=== PATIENT | male | born 2005 | race Caucasian/White ===

== ENCOUNTER 2025-08-23 14:10 | Inpatient (IN) | payer SELFPAY ==
[2025-08-23] MEDS ORDERED: Sodium Chloride 0.9% 10 ML Syringe FLUSH PRN (15:08)
[2025-08-23] MEDS: Ondansetron 4 MG/2 ML SDV IVPUSH ONE (15:33)
[2025-08-23 15:39] LABS: BASOPHILS ABSOLUTE AUTO 0.1 K/mm3 (0.0-0.2); BASOPHILS PERCENT AUTO 0.6 % (0.0-1.0); EOSINOPHILS ABSOLUTE AUTO 0.0 K/mm3 (0.0-0.4); EOSINOPHILS PERCENT AUTO 0.1 % (0.0-6.0); IMMATURE GRAN ABSOLUTE AUTO 0.23 K/mm3 (0.00-0.05); IMMATURE GRAN PERCENT AUTO 1.4 % (0.0-0.4); LYMPHOCYTES ABSOLUTE AUTO 1.6 K/mm3 (1.0-4.8); LYMPHOCYTES PERCENT AUTO 9.7 % (24.0-44.0); MEAN PLATELET VOLUME 10.4 fl (9.4-12.4); MONOCYTES ABSOLUTE AUTO 1.4 K/mm3 (0.0-0.8); MONOCYTES PERCENT AUTO 8.5 % (0.0-8.0); NEUTROPHILS ABSOLUTE AUTO 13.3 K/mm3 (1.8-7.7); NEUTROPHILS PERCENT AUTO 79.7 % (41.0-71.0); NRBC ABSOLUTE 0.00 (0.00-0.02); NRBC PERCENT 0.0 % (0.0-0.2); PLATELET COUNT,PLT 323 K/mm3 (150-400); RED BLOOD CELL COUNT 5.92 M/mm3 (4.52-5.90); WHITE BLOOD CELL COUNT,WBC 16.65 K/mm3 (3.9-11.3)
[2025-08-23 15:40] LABS: O2 SATURATION ARTERIAL 99.3 % (96.0-97.0); PCO2 ARTERIAL 6.0 mmHg (35.0-45.0); PO2 ARTERIAL 122.0 mmHg (80.0-100.0)
[2025-08-23 15:41] LABS: BASE EXCESS ARTERIAL -25.1 (-2-2.0); BICARBONATE,ARTERIAL 1.8 meq/L (22.0-26.0)
[2025-08-23 16:07] LABS: LACTIC ACID 1.8 mmol/L (0.4-2.0)
[2025-08-23 16:10] LABS: A/G RATIO 1.0 (1-2); ALANINE AMINOTRANSFERASE,ALT 30.0 U/L (16-63); ASPARTATE AMNIOTRANSFERASE,AST 7.0 U/L (15-37); BILIRUBIN TOTAL 0.5 mg/dL (0.2-1.0); BLOOD UREA NITROGEN,BUN 11.0 mg/dL (7-18); CHLORIDE,CL 99.0 mEq/L (98-107); CREATININE 1.1 mg/dL (0.7-1.3); EST CRCL DRUG DOSING (CG) 129.32 mL/min; ESTIMATED GFR 97.0 mL/min (>60); POTASSIUM,K 5.1 mEq/L (3.5-5.1); PROTEIN TOTAL,TP 8.7 g/dl (6.4-8.2); SODIUM,NA 135.0 mEq/L (136-145)
[2025-08-23 16:15] LABS: CARBON DIOXIDE,CO2 7.0 mEq/L (21-32)
[2025-08-23 16:16] LABS: GLUCOSE RANDOM 508.0 mg/dL (70-99)
[2025-08-23] MEDS ORDERED: 50% Dextrose in Water 50 ML Syringe IVPUSH PRN (18:44)
[2025-08-23 20:12] LABS: BLOOD UREA NITROGEN,BUN 11.0 mg/dL (7-18); CHLORIDE,CL 106.0 mEq/L (98-107); CREATININE 1.0 mg/dL (0.7-1.3); EST CRCL DRUG DOSING (CG) 142.26 mL/min; ESTIMATED GFR 109.0 mL/min (>60); GLUCOSE RANDOM 360.0 mg/dL (70-99); PHOSPHORUS 3.2 mg/dL (2.6-4.7); POTASSIUM,K 4.5 mEq/L (3.5-5.1); SODIUM,NA 138.0 mEq/L (136-145)
[2025-08-23 20:25] LABS: CARBON DIOXIDE,CO2 7.0 mEq/L (21-32)
[2025-08-23 23:54] LABS: APPEARANCE,URINE CLEAR (Clear); GLUCOSE,URINE 2+ (Negative); OCCULT BLOOD,URINE 2+ (Negative)
[2025-08-24 00:28] LABS: BLOOD UREA NITROGEN,BUN 9.0 mg/dL (7-18); CHLORIDE,CL 109.0 mEq/L (98-107); CREATININE 0.8 mg/dL (0.7-1.3); EST CRCL DRUG DOSING (CG) 177.82 mL/min; ESTIMATED GFR 128.0 mL/min (>60); GLUCOSE RANDOM 221.0 mg/dL (70-99); PHOSPHORUS 2.5 mg/dL (2.6-4.7); POTASSIUM,K 3.9 mEq/L (3.5-5.1); SODIUM,NA 141.0 mEq/L (136-145)
[2025-08-24 00:31] LABS: CARBON DIOXIDE,CO2 6.0 mEq/L (21-32)
[2025-08-24 04:32] LABS: BLOOD UREA NITROGEN,BUN 8.0 mg/dL (7-18); CHLORIDE,CL 107.0 mEq/L (98-107); CREATININE 1.0 mg/dL (0.7-1.3); EST CRCL DRUG DOSING (CG) 142.26 mL/min; ESTIMATED GFR 109.0 mL/min (>60); GLUCOSE RANDOM 266.0 mg/dL (70-99); PHOSPHORUS 1.6 mg/dL (2.6-4.7); POTASSIUM,K 3.9 mEq/L (3.5-5.1); SODIUM,NA 134.0 mEq/L (136-145)
[2025-08-24 05:04] LABS: CARBON DIOXIDE,CO2 9.0 mEq/L (21-32)
[2025-08-24 05:49] LABS: BASOPHILS ABSOLUTE AUTO 0.1 K/mm3 (0.0-0.2); BASOPHILS PERCENT AUTO 0.4 % (0.0-1.0); EOSINOPHILS ABSOLUTE AUTO 1.2 K/mm3 (0.0-0.4); EOSINOPHILS PERCENT AUTO 10.9 % (0.0-6.0); IMMATURE GRAN ABSOLUTE AUTO 0.18 K/mm3 (0.00-0.05); IMMATURE GRAN PERCENT AUTO 1.6 % (0.0-0.4); LYMPHOCYTES ABSOLUTE AUTO 1.8 K/mm3 (1.0-4.8); LYMPHOCYTES PERCENT AUTO 15.6 % (24.0-44.0); MEAN PLATELET VOLUME 9.9 fl (9.4-12.4); MONOCYTES ABSOLUTE AUTO 1.4 K/mm3 (0.0-0.8); MONOCYTES PERCENT AUTO 12.5 % (0.0-8.0); NEUTROPHILS ABSOLUTE AUTO 6.6 K/mm3 (1.8-7.7); NEUTROPHILS PERCENT AUTO 59.0 % (41.0-71.0); NRBC ABSOLUTE 0.00 (0.00-0.02); NRBC PERCENT 0.0 % (0.0-0.2); PLATELET COUNT,PLT 193 K/mm3 (150-400); RED BLOOD CELL COUNT 5.02 M/mm3 (4.52-5.90); WHITE BLOOD CELL COUNT,WBC 11.23 K/mm3 (3.9-11.3)
[2025-08-24 06:31] LABS: A/G RATIO 1.0 (1-2); ALANINE AMINOTRANSFERASE,ALT 24.0 U/L (16-63); ASPARTATE AMNIOTRANSFERASE,AST 8.0 U/L (15-37); BILIRUBIN TOTAL 0.6 mg/dL (0.2-1.0); BLOOD UREA NITROGEN,BUN 9.0 mg/dL (7-18); CHLORIDE,CL 108.0 mEq/L (98-107); CREATININE 0.9 mg/dL (0.7-1.3); EST CRCL DRUG DOSING (CG) 158.06 mL/min; ESTIMATED GFR 124.0 mL/min (>60); GLUCOSE RANDOM 248.0 mg/dL (70-99); POTASSIUM,K 3.4 mEq/L (3.5-5.1); PROTEIN TOTAL,TP 6.7 g/dl (6.4-8.2); SODIUM,NA 138.0 mEq/L (136-145)
[2025-08-24 06:35] LABS: CARBON DIOXIDE,CO2 8.0 mEq/L (21-32)
[2025-08-24 08:05] LABS: BLOOD UREA NITROGEN,BUN 8.0 mg/dL (7-18); CHLORIDE,CL 109.0 mEq/L (98-107); CREATININE 0.8 mg/dL (0.7-1.3); EST CRCL DRUG DOSING (CG) 177.82 mL/min; ESTIMATED GFR 128.0 mL/min (>60); GLUCOSE RANDOM 265.0 mg/dL (70-99); PHOSPHORUS 1.4 mg/dL (2.6-4.7); POTASSIUM,K 3.3 mEq/L (3.5-5.1); SODIUM,NA 138.0 mEq/L (136-145)
[2025-08-24 08:07] LABS: CARBON DIOXIDE,CO2 8.0 mEq/L (21-32)
[2025-08-24 08:43] LABS: EPITHELIAL CELLS,URINE 0-5 /hpf (0-5)
[2025-08-24] MEDS: Ondansetron 4 MG/2 ML SDV IVPUSH PRN (09:45)
[2025-08-24 12:11] LABS: BLOOD UREA NITROGEN,BUN 7.0 mg/dL (7-18); CARBON DIOXIDE,CO2 10.0 mEq/L (21-32); CHLORIDE,CL 109.0 mEq/L (98-107); CREATININE 0.7 mg/dL (0.7-1.3); EST CRCL DRUG DOSING (CG) 203.22 mL/min; ESTIMATED GFR 134.0 mL/min (>60); GLUCOSE RANDOM 255.0 mg/dL (70-99); PHOSPHORUS 1.2 mg/dL (2.6-4.7); POTASSIUM,K 3.3 mEq/L (3.5-5.1); SODIUM,NA 138.0 mEq/L (136-145)
[2025-08-24] MEDS: Potassium Phosphates 30 MMOLE in Sodium Chloride 0.9% 500 ML IV ONE (13:16)
[2025-08-24 14:42] LABS: BLOOD UREA NITROGEN,BUN 7.0 mg/dL (7-18); CARBON DIOXIDE,CO2 12.0 mEq/L (21-32); CHLORIDE,CL 109.0 mEq/L (98-107); CREATININE 0.6 mg/dL (0.7-1.3); EST CRCL DRUG DOSING (CG) 237.09 mL/min; ESTIMATED GFR 140.0 mL/min (>60); GLUCOSE RANDOM 263.0 mg/dL (70-99); POTASSIUM,K 3.2 mEq/L (3.5-5.1); SODIUM,NA 138.0 mEq/L (136-145)
[2025-08-24 15:52] LABS: BLOOD UREA NITROGEN,BUN 7.0 mg/dL (7-18); CARBON DIOXIDE,CO2 13.0 mEq/L (21-32); CHLORIDE,CL 109.0 mEq/L (98-107); CREATININE 0.7 mg/dL (0.7-1.3); EST CRCL DRUG DOSING (CG) 203.22 mL/min; ESTIMATED GFR 134.0 mL/min (>60); GLUCOSE RANDOM 250.0 mg/dL (70-99); POTASSIUM,K 3.4 mEq/L (3.5-5.1); SODIUM,NA 139.0 mEq/L (136-145)
[2025-08-24 17:56] LABS: BLOOD UREA NITROGEN,BUN 6.0 mg/dL (7-18); CARBON DIOXIDE,CO2 11.0 mEq/L (21-32); CHLORIDE,CL 108.0 mEq/L (98-107); CREATININE 0.6 mg/dL (0.7-1.3); EST CRCL DRUG DOSING (CG) 237.09 mL/min; ESTIMATED GFR 140.0 mL/min (>60); GLUCOSE RANDOM 229.0 mg/dL (70-99); POTASSIUM,K 3.0 mEq/L (3.5-5.1); SODIUM,NA 137.0 mEq/L (136-145)
[2025-08-24] MEDS: Potassium Chloride 20 MEQ Tab.ER PO ONE ×2 (18:53→19:54)
[2025-08-24 18:57] LABS: PHOSPHORUS 1.6 mg/dL (2.6-4.7)
[2025-08-24 21:54] LABS: BLOOD UREA NITROGEN,BUN 6.0 mg/dL (7-18); CARBON DIOXIDE,CO2 11.0 mEq/L (21-32); CHLORIDE,CL 106.0 mEq/L (98-107); CREATININE 0.6 mg/dL (0.7-1.3); EST CRCL DRUG DOSING (CG) 237.09 mL/min; ESTIMATED GFR 140.0 mL/min (>60); GLUCOSE RANDOM 289.0 mg/dL (70-99); PHOSPHORUS 1.0 mg/dL (2.6-4.7); POTASSIUM,K 3.2 mEq/L (3.5-5.1); SODIUM,NA 137.0 mEq/L (136-145)
[2025-08-24] MEDS: Sodium Chloride 0.45% with KCl 1,000 ML IV SCH (23:32)
[2025-08-24 23:51] LABS: BLOOD UREA NITROGEN,BUN 6.0 mg/dL (7-18); CARBON DIOXIDE,CO2 11.0 mEq/L (21-32); CHLORIDE,CL 106.0 mEq/L (98-107); CREATININE 0.7 mg/dL (0.7-1.3); EST CRCL DRUG DOSING (CG) 203.22 mL/min; ESTIMATED GFR 134.0 mL/min (>60); GLUCOSE RANDOM 270.0 mg/dL (70-99); POTASSIUM,K 3.6 mEq/L (3.5-5.1); SODIUM,NA 136.0 mEq/L (136-145)
[2025-08-24] MEDS: Potassium Phosphates 30 MMOLE in Sodium Chloride 0.9% 500 ML IV SCH (23:56)
[2025-08-25] MEDS: D5 1/2 NS w/ 20 mEq/L KCl 1,000 ML IV SCH (01:10)
[2025-08-25 02:09] LABS: BLOOD UREA NITROGEN,BUN 6.0 mg/dL (7-18); CARBON DIOXIDE,CO2 10.0 mEq/L (21-32); CHLORIDE,CL 107.0 mEq/L (98-107); CREATININE 0.6 mg/dL (0.7-1.3); EST CRCL DRUG DOSING (CG) 237.09 mL/min; ESTIMATED GFR 140.0 mL/min (>60); GLUCOSE RANDOM 254.0 mg/dL (70-99); PHOSPHORUS 1.5 mg/dL (2.6-4.7); POTASSIUM,K 3.2 mEq/L (3.5-5.1); SODIUM,NA 138.0 mEq/L (136-145)
[2025-08-25 06:12] LABS: BASOPHILS ABSOLUTE AUTO 0.0 K/mm3 (0.0-0.2); BASOPHILS PERCENT AUTO 0.5 % (0.0-1.0); EOSINOPHILS ABSOLUTE AUTO 0.0 K/mm3 (0.0-0.4); EOSINOPHILS PERCENT AUTO 0.7 % (0.0-6.0); IMMATURE GRAN ABSOLUTE AUTO 0.04 K/mm3 (0.00-0.05); IMMATURE GRAN PERCENT AUTO 0.7 % (0.0-0.4); LYMPHOCYTES ABSOLUTE AUTO 2.1 K/mm3 (1.0-4.8); LYMPHOCYTES PERCENT AUTO 35.3 % (24.0-44.0); MEAN PLATELET VOLUME 10.1 fl (9.4-12.4); MONOCYTES ABSOLUTE AUTO 0.6 K/mm3 (0.0-0.8); MONOCYTES PERCENT AUTO 10.0 % (0.0-8.0); NEUTROPHILS ABSOLUTE AUTO 3.2 K/mm3 (1.8-7.7); NEUTROPHILS PERCENT AUTO 52.8 % (41.0-71.0); NRBC ABSOLUTE 0.00 (0.00-0.02); NRBC PERCENT 0.0 % (0.0-0.2); PLATELET COUNT,PLT 159 K/mm3 (150-400); RED BLOOD CELL COUNT 4.46 M/mm3 (4.52-5.90); WHITE BLOOD CELL COUNT,WBC 6.01 K/mm3 (3.9-11.3)
[2025-08-25 06:13] LABS: A/G RATIO 1.0 (1-2); ALANINE AMINOTRANSFERASE,ALT 21.0 U/L (16-63); ASPARTATE AMNIOTRANSFERASE,AST 9.0 U/L (15-37); BILIRUBIN TOTAL 0.8 mg/dL (0.2-1.0); BLOOD UREA NITROGEN,BUN 6.0 mg/dL (7-18); CARBON DIOXIDE,CO2 11.0 mEq/L (21-32); CHLORIDE,CL 107.0 mEq/L (98-107); CREATININE 0.7 mg/dL (0.7-1.3); EST CRCL DRUG DOSING (CG) 203.22 mL/min; ESTIMATED GFR 134.0 mL/min (>60); GLUCOSE RANDOM 225.0 mg/dL (70-99); PHOSPHORUS 2.0 mg/dL (2.6-4.7); POTASSIUM,K 3.3 mEq/L (3.5-5.1); PROTEIN TOTAL,TP 5.9 g/dl (6.4-8.2); SODIUM,NA 139.0 mEq/L (136-145)
[2025-08-25 10:06] LABS: BLOOD UREA NITROGEN,BUN 5.0 mg/dL (7-18); CARBON DIOXIDE,CO2 15.0 mEq/L (21-32); CHLORIDE,CL 107.0 mEq/L (98-107); CREATININE 0.7 mg/dL (0.7-1.3); EST CRCL DRUG DOSING (CG) 203.22 mL/min; ESTIMATED GFR 134.0 mL/min (>60); GLUCOSE RANDOM 221.0 mg/dL (70-99); PHOSPHORUS 2.2 mg/dL (2.6-4.7); POTASSIUM,K 3.1 mEq/L (3.5-5.1); SODIUM,NA 138.0 mEq/L (136-145)
[2025-08-25] MEDS: Potassium Chloride 20 MEQ Tab.ER PO ONE (10:33)
[2025-08-25 13:57] LABS: BLOOD UREA NITROGEN,BUN 5.0 mg/dL (7-18); CARBON DIOXIDE,CO2 12.0 mEq/L (21-32); CHLORIDE,CL 104.0 mEq/L (98-107); CREATININE 0.6 mg/dL (0.7-1.3); EST CRCL DRUG DOSING (CG) 237.09 mL/min; ESTIMATED GFR 140.0 mL/min (>60); GLUCOSE RANDOM 297.0 mg/dL (70-99); PHOSPHORUS 2.6 mg/dL (2.6-4.7); POTASSIUM,K 3.6 mEq/L (3.5-5.1); SODIUM,NA 137.0 mEq/L (136-145)
[2025-08-25] MEDS: Potassium Chloride 20 MEQ Tab.ER PO SCH (14:15)
[2025-08-25 18:04] LABS: BLOOD UREA NITROGEN,BUN 6.0 mg/dL (7-18); CARBON DIOXIDE,CO2 16.0 mEq/L (21-32); CHLORIDE,CL 104.0 mEq/L (98-107); CREATININE 0.5 mg/dL (0.7-1.3); EST CRCL DRUG DOSING (CG) 284.51 mL/min; ESTIMATED GFR 148.0 mL/min (>60); GLUCOSE RANDOM 266.0 mg/dL (70-99); PHOSPHORUS 1.5 mg/dL (2.6-4.7); POTASSIUM,K 3.6 mEq/L (3.5-5.1); SODIUM,NA 136.0 mEq/L (136-145)
[2025-08-25] MEDS: Sodium Chloride 0.45% with KCl 1,000 ML IV SCH (21:31)
[2025-08-25 21:54] LABS: BLOOD UREA NITROGEN,BUN 4.0 mg/dL (7-18); CARBON DIOXIDE,CO2 18.0 mEq/L (21-32); CHLORIDE,CL 104.0 mEq/L (98-107); CREATININE 0.6 mg/dL (0.7-1.3); EST CRCL DRUG DOSING (CG) 237.09 mL/min; ESTIMATED GFR 140.0 mL/min (>60); GLUCOSE RANDOM 252.0 mg/dL (70-99); PHOSPHORUS 1.7 mg/dL (2.6-4.7); POTASSIUM,K 3.4 mEq/L (3.5-5.1); SODIUM,NA 136.0 mEq/L (136-145)
[2025-08-26 01:58] LABS: BLOOD UREA NITROGEN,BUN 5.0 mg/dL (7-18); CARBON DIOXIDE,CO2 19.0 mEq/L (21-32); CHLORIDE,CL 104.0 mEq/L (98-107); CREATININE 0.5 mg/dL (0.7-1.3); EST CRCL DRUG DOSING (CG) 284.51 mL/min; ESTIMATED GFR 148.0 mL/min (>60); GLUCOSE RANDOM 268.0 mg/dL (70-99); PHOSPHORUS 1.9 mg/dL (2.6-4.7); POTASSIUM,K 3.5 mEq/L (3.5-5.1); SODIUM,NA 137.0 mEq/L (136-145)
[2025-08-26 05:44] LABS: BASOPHILS ABSOLUTE AUTO 0.0 K/mm3 (0.0-0.2); BASOPHILS PERCENT AUTO 0.7 % (0.0-1.0); EOSINOPHILS ABSOLUTE AUTO 0.1 K/mm3 (0.0-0.4); EOSINOPHILS PERCENT AUTO 1.1 % (0.0-6.0); IMMATURE GRAN ABSOLUTE AUTO 0.03 K/mm3 (0.00-0.05); IMMATURE GRAN PERCENT AUTO 0.7 % (0.0-0.4); LYMPHOCYTES ABSOLUTE AUTO 2.1 K/mm3 (1.0-4.8); LYMPHOCYTES PERCENT AUTO 45.3 % (24.0-44.0); MEAN PLATELET VOLUME 11.2 fl (9.4-12.4); MONOCYTES ABSOLUTE AUTO 0.5 K/mm3 (0.0-0.8); MONOCYTES PERCENT AUTO 10.7 % (0.0-8.0); NEUTROPHILS ABSOLUTE AUTO 1.9 K/mm3 (1.8-7.7); NEUTROPHILS PERCENT AUTO 41.5 % (41.0-71.0); NRBC ABSOLUTE 0.00 (0.00-0.02); NRBC PERCENT 0.0 % (0.0-0.2); PLATELET COUNT,PLT 116 K/mm3 (150-400); RED BLOOD CELL COUNT 4.35 M/mm3 (4.52-5.90); WHITE BLOOD CELL COUNT,WBC 4.57 K/mm3 (3.9-11.3)
[2025-08-26 06:35] LABS: A/G RATIO 0.9 (1-2); ALANINE AMINOTRANSFERASE,ALT 19.0 U/L (16-63); ASPARTATE AMNIOTRANSFERASE,AST 8.0 U/L (15-37); BILIRUBIN TOTAL 0.8 mg/dL (0.2-1.0); BLOOD UREA NITROGEN,BUN 5.0 mg/dL (7-18); CARBON DIOXIDE,CO2 20.0 mEq/L (21-32); CHLORIDE,CL 104.0 mEq/L (98-107); CHOLESTEROL HDL 28.0 mg/dL (40-59); CHOLESTEROL LDL DIRECT 93.0 mg/dL (<100); CHOLESTEROL TOTAL 151.0 mg/dL (<200); CREATININE 0.5 mg/dL (0.7-1.3); EST CRCL DRUG DOSING (CG) 284.51 mL/min; ESTIMATED GFR 148.0 mL/min (>60); GLUCOSE RANDOM 245.0 mg/dL (70-99); POTASSIUM,K 3.5 mEq/L (3.5-5.1); PROTEIN TOTAL,TP 5.8 g/dl (6.4-8.2); SODIUM,NA 137.0 mEq/L (136-145)
[2025-08-26 10:08] LABS: BLOOD UREA NITROGEN,BUN 5.0 mg/dL (7-18); CARBON DIOXIDE,CO2 21.0 mEq/L (21-32); CHLORIDE,CL 103.0 mEq/L (98-107); CREATININE 0.6 mg/dL (0.7-1.3); EST CRCL DRUG DOSING (CG) 237.09 mL/min; ESTIMATED GFR 140.0 mL/min (>60); GLUCOSE RANDOM 242.0 mg/dL (70-99); PHOSPHORUS 2.2 mg/dL (2.6-4.7); POTASSIUM,K 3.3 mEq/L (3.5-5.1); SODIUM,NA 135.0 mEq/L (136-145)
[2025-08-26] MEDS: Potassium Chloride 20 MEQ Tab.ER PO ONE (11:38)
[2025-08-26] MEDS: Magnesium Sulfate 2 GM/50 mL 2 GM in Premix Bag 1 BAG IV ONE (11:39)
[2025-08-26 14:00] LABS: BLOOD UREA NITROGEN,BUN 4.0 mg/dL (7-18); CARBON DIOXIDE,CO2 21.0 mEq/L (21-32); CHLORIDE,CL 105.0 mEq/L (98-107); CREATININE 0.5 mg/dL (0.7-1.3); EST CRCL DRUG DOSING (CG) 284.51 mL/min; ESTIMATED GFR 148.0 mL/min (>60); GLUCOSE RANDOM 239.0 mg/dL (70-99); POTASSIUM,K 3.9 mEq/L (3.5-5.1); SODIUM,NA 137.0 mEq/L (136-145)
[2025-08-26] MEDS: Insulin Glargine,Human Rec. Analog 100 Units/ML 3 ML Pen SUBCUT ONE (16:02)
[2025-08-26 17:55] LABS: BLOOD UREA NITROGEN,BUN 3.0 mg/dL (7-18); CARBON DIOXIDE,CO2 20.0 mEq/L (21-32); CHLORIDE,CL 104.0 mEq/L (98-107); CREATININE 0.5 mg/dL (0.7-1.3); EST CRCL DRUG DOSING (CG) 284.51 mL/min; ESTIMATED GFR 148.0 mL/min (>60); GLUCOSE RANDOM 297.0 mg/dL (70-99); POTASSIUM,K 3.7 mEq/L (3.5-5.1); SODIUM,NA 136.0 mEq/L (136-145)
[2025-08-26 18:27] LABS: PHOSPHORUS 1.7 mg/dL (2.6-4.7)
[2025-08-26] MEDS: Insulin Lispro 100 Unit/ML 3 ML KwikPen SUBCUT SCH (21:21)
[2025-08-27] MEDS ORDERED: Insulin Lispro 100 Unit/ML 3 ML KwikPen SUBCUT SCH
[2025-08-27] MEDS ORDERED: Insulin Glargine,Human Rec. Analog 100 Units/ML 3 ML Pen SUBCUT SCH
[2025-08-27 06:01] LABS: BASOPHILS ABSOLUTE AUTO 0.0 K/mm3 (0.0-0.2); BASOPHILS PERCENT AUTO 0.4 % (0.0-1.0); EOSINOPHILS ABSOLUTE AUTO 0.1 K/mm3 (0.0-0.4); EOSINOPHILS PERCENT AUTO 1.5 % (0.0-6.0); IMMATURE GRAN ABSOLUTE AUTO 0.03 K/mm3 (0.00-0.05); IMMATURE GRAN PERCENT AUTO 0.6 % (0.0-0.4); LYMPHOCYTES ABSOLUTE AUTO 2.3 K/mm3 (1.0-4.8); LYMPHOCYTES PERCENT AUTO 47.5 % (24.0-44.0); MEAN PLATELET VOLUME 10.1 fl (9.4-12.4); MONOCYTES ABSOLUTE AUTO 0.5 K/mm3 (0.0-0.8); MONOCYTES PERCENT AUTO 10.1 % (0.0-8.0); NEUTROPHILS ABSOLUTE AUTO 1.9 K/mm3 (1.8-7.7); NEUTROPHILS PERCENT AUTO 39.9 % (41.0-71.0); NRBC ABSOLUTE 0.00 (0.00-0.02); NRBC PERCENT 0.0 % (0.0-0.2); PLATELET COUNT,PLT 146 K/mm3 (150-400); RED BLOOD CELL COUNT 4.21 M/mm3 (4.52-5.90); WHITE BLOOD CELL COUNT,WBC 4.74 K/mm3 (3.9-11.3)
[2025-08-27 06:27] LABS: A/G RATIO 0.9 (1-2); ALANINE AMINOTRANSFERASE,ALT 19.0 U/L (16-63); ASPARTATE AMNIOTRANSFERASE,AST 12.0 U/L (15-37); BILIRUBIN TOTAL 0.7 mg/dL (0.2-1.0); BLOOD UREA NITROGEN,BUN 5.0 mg/dL (7-18); CARBON DIOXIDE,CO2 22.0 mEq/L (21-32); CHLORIDE,CL 105.0 mEq/L (98-107); CREATININE 0.4 mg/dL (0.7-1.3); EST CRCL DRUG DOSING (CG) 355.64 mL/min; ESTIMATED GFR 158.0 mL/min (>60); GLUCOSE RANDOM 238.0 mg/dL (70-99); POTASSIUM,K 3.6 mEq/L (3.5-5.1); PROTEIN TOTAL,TP 5.7 g/dl (6.4-8.2); SODIUM,NA 139.0 mEq/L (136-145)
[2025-08-27] MEDS: Insulin Glargine,Human Rec. Analog 100 Units/ML 3 ML Pen SUBCUT SCH (08:10)
== END 2025-08-27 12:56 | disposition home or self-care (01) | DRG 639 ==
LOC: JD.ED 14:10 → JD.ICU 17:27 → JD.MS 08-26 18:13
PROVIDERS: ADMIT Family Medicine; ATTEND Internal Medicine
PROC: 02H633Z Insertion of Infusion Device into Right Atrium, Percutaneous Approach (ICD-10-PCS; principal; 2025-08-23)
PROC: B548ZZA Ultrasonography of Superior Vena Cava, Guidance (ICD-10-PCS; principal; 2025-08-23)
DX: E10.10 Type 1 diabetes mellitus with ketoacidosis without coma (principal); E86.0 Dehydration; E87.6 Hypokalemia; E83.39 Other disorders of phosphorus metabolism
CPT/HCPCS: 36410; 36415; 36569; 36600; 71045; 71045-26; 80048; 80053; 80061; 81001; 82010; 82800; 82803; 82947; 83036; 83605; 83735; 84100; 84132; 85025; 87040; 87428-QW; 96361; 96374; 99223; 99232; 99233; 99285-25; A9270-GY; J1650; J1815-GY; J2405; J3475; J3480; J3490; J7030; J7040; S5010